=== PATIENT | male | born 1950 | race Caucasian/White ===

== ENCOUNTER 2020-04-05 14:16 | Emergency (ER) | payer MEDICARE ==
[~2020-04-05] VITALS: Ht 182.9 cm; Wt 113.3 kg
[~2020-04-05 14:16] MED LIST: amiodarone 50MG/ML inj IV ONE; atropine 0.1mg/ml 10ml syringe ONE; atropine 0.4 mg/ml 20ml vial ONE; epiNEPHrine 0.1mg/ml 10ml syringe ONE; epiNEPHrine 1 mg/ml inj IV STA; sodium bicarbonate (8.4%) 1 mEq/ml syringe IV ONE; sodium bicarbonate (8.4%) 1 mEq/ml syringe ONE
[2020-04-05] MEDS ORDERED: amiodarone 50MG/ML inj IV ONE ×2 (14:23→15:50)
[2020-04-05] MEDS ORDERED: epiNEPHrine 1 mg/ml inj IV STA ×5 (14:30→15:55)
[2020-04-05] MEDS ORDERED: normal saline 1000ml 1,000 ML IVB ONE (14:30)
[2020-04-05] MEDS ORDERED: epiNEPHrine inj 5 MG in normal saline 250ml IV soln 245 ML IV SCH (14:40)
[2020-04-05] MEDS ORDERED: NORepinephrine 8mg/ 250ml NS 250 ML IV SCH (14:45)
[2020-04-05] MEDS ORDERED: NORepinephrine 8mg/ 250ml NS 250 ML IV ONE (14:47)
[2020-04-05 14:49] LABS: BASOPHILS # (AUTO) 0.1 X10'3 (0-0.2); BASOPHILS % (AUTO) 0.8 % (0-1); EOSINOPHILS # (AUTO) 0.7 X10'3 (0-0.9); EOSINOPHILS % (AUTO) 4.5 % (0-6); HEMATOCRIT 45.7 % (42.0-52.0); HEMOGLOBIN 14.4 g/dl (14.0-17.9); LYMPHOCYTES # (AUTO) 6.4 X10'3 (1.1-4.8); LYMPHOCYTES % (AUTO) 40.1 % (21-51); MEAN CORPUSCULAR HEMOGLOBIN 30.3 PG (27.0-31.0); MEAN CORPUSCULAR HGB CONC 31.5 g/dL (33.0-36.5); MEAN CORPUSCULAR VOLUME 96.2 FL (78-98); MEAN PLATELET VOLUME 8.8 FL (7.4-10.4); MONOCYTES # (AUTO) 1.2 X10'3 (0-0.9); MONOCYTES % (AUTO) 7.4 % (2-12); NEUTROPHILS # (AUTO) 7.5 X10'3 (1.8-7.7); NEUTROPHILS % (AUTO) 47.2 % (42-75); PLATELET COUNT 163 X10'3 (140-440); RED BLOOD COUNT 4.75 X10'6 (4.70-6.10); WHITE BLOOD COUNT 15.8 X10'3 (4.5-11.0)
--- NOTE | 2020-04-05 14:50 | NUR ---
at bedside states she was outside in the yard working and came inside to use the bathroom. heard "a thump" and said that patient hit his head on the toilet. states that patient had "the worse headache of his life" which was followed by vomiting. She says that he then passed out. According to EMS patient coded for a short interval and had a good response after 8 rounds of epinephrine. 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 EMS administered 2 fluid bolus.
[2020-04-05 14:56] LABS: ABG BASE EXCESS -18.4 mmol/L (-2.0-2.0); ABG HCO3 13.9 mmol/L (22.0-26.0); ABG OXYGEN SATURATION 97.8 % (94-97); ABG PCO2 (T) 61.6 mmHg (35.0-48.0); ABG PO2 (T) 155.9 mmHg (75.0-100.0); ALLEN'S TEST POSITIVE; FCOHb 0.7 % (0.0-3.9); FMetHb 0.3 % (0.0-1.5); FO2Hb 96.8 % (94-97); TOTAL HEMOGLOBIN 14.4 G/dl (14.0-18.0)
[2020-04-05 15:02] LABS: ALANINE AMINOTRANSFERASE 278 U/L (12-78); ALBUMIN 2.6 G/DL (3.4-5.0); ALBUMIN/GLOBULIN RATIO 0.8 (1.1-1.5); ALKALINE PHOSPHATASE 63 IU/L (46-116); ANION GAP 18 (8-16); ASPARTATE AMINO TRANSFERASE 259 U/L (10-37); BILIRUBIN,TOTAL 0.1 MG/DL (0.1-1.0); BLOOD UREA NITROGEN 12 MG/DL (7-18); BUN/CREATININE RATIO 6.6 (5.4-32.0); CALCIUM 8.6 MG/DL (8.5-10.1); CHLORIDE 107 MMOL/L (99-107); CREATININE 1.82 MG/DL (0.60-1.10); GLUCOSE 292 MG/DL (70-104); SODIUM 143 MMOL/L (135-145); TOTAL CARBON DIOXIDE 17.8 MMOL/L (24-32); TOTAL PROTEIN 5.9 G/DL (6.4-8.2); eGFR 37 ML/MIN
[2020-04-05 15:10] LABS: POTASSIUM 4.1 MMOL/L (3.5-5.1)
[2020-04-05] MEDS ORDERED: niCARdipine I.V. 50 MG in normal saline 250ml IV soln 230 ML IV SCH (15:30)
[2020-04-05] MEDS ORDERED: niCARDipine-NS 40mg/200ml IVPB IV SCH (15:35)
[2020-04-05 15:53] LABS: TOTAL CELLS COUNTED 200
[2020-04-05] MEDS ORDERED: atropine 1 MG/1 ML vial IV ONE (15:54)
[2020-04-05] MEDS ORDERED: sodium bicarbonate (8.4%) 1 mEq/ml syringe IV ONE (15:54)
--- NOTE | 2020-04-05 15:55 | NUR ---
1416: PATIENT ARRIVED TO ER, PULSE CHECK WITH NO PULSE, CPR INITIATED, DR SALMERON AT BEDSIDE, IGEL IN PLACE TO BVM, IO TO RLE, PUPILS 4MM FIXED, PAT NON RESPONSIVE, 10 MIN CPR AND 8 ROUNDS OF EPI GIVEN PAN WASHER. EPINEPHRINE 1MG GIVEN IVP PER DR SALMERON, 1 AMP BICARB GIVEN IVP. 1421: PULSE CHECK WITH ROSC. 1442: CPR INITIATED FOR PEA/HR 50'S, EPINEPHRINE 1 MG GIVEN IVP PER DR SALMERON AT BEDSIDE. 1445: PULSE CHECK WITH ROSC. 1452: CPR INITIATED FOR PEA/HR 50'S WITH NO PULSE PRESENT, 1455: EPINEPHRINE 1MG IVP PER DR SALMERON. 1501: PULSE CHECK WITH ROSC. 1515: CPR INITIATED AT CT FOR PEA/HR 50'S WITH NO PRESENT PULSE. 1518: EPINEPHRINE 1 MG IVP GIVEN PER DR SALMERON AT BEDSIDE. EPINEPHRINE DRIP INCREASED TO 10 MCG/MIN PER MD. 1520: PULSE CHECK WITH ROSC. 1534: CPR INITIATED FOR NO PRESENT PULSE. 1536: EPINEPHRINE 1MG IVP GIVEN PER MD. 1539 PULSE CHECK WITH NO PUSE, CPR CONTINUED. 1541: PULSE CHECK WITH ROSC. 1555: CPR INITIATED WITH 1 MG EPINEPHRINE GIVEN IVP PER MD. 1557 PULSE CHECK WITH ROSC.
[2020-04-05 15:56] LABS: PLATELET ESTIMATE NORMAL
[2020-04-05 15:57] LABS: SMUDGE CELLS 1+
--- NOTE | 2020-04-05 16:25 | NUR ---
REPORT GIVEN TO RN AT [facility], TRANSPORT AT BEDSIDE, REPORT GIVEN BY DR SALMERON TO TRANSPORT.
[2020-04-05 16:35] VITALS: BP 73/43
== END 2020-04-05 18:01 | disposition short-term general hospital (02) ==
LOC: ER 14:17 → EDBD 14:17 → ER 18:01
DX: I46.9 Cardiac arrest, cause unspecified (principal); Z20.828 Contact with and (suspected) exposure to other viral communicable diseases; I60.9 Nontraumatic subarachnoid hemorrhage, unspecified; I10 Essential (primary) hypertension
CPT/HCPCS: 36415; 36556; 36600; 70450; 71045; 80053; 82803; 82948; 83880; 84484; 85007; 85018; 85025; 87635; 92950; 93005; 94799; 96365; 96366; 96368; 96375; 96376; 99291; 99292; J0171; J0461; J2150; J7030; J7050; 94002; 96361; 96367